=== PATIENT | female | born 2000 | race Caucasian/White ===

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

== ENCOUNTER 2021-10-16 12:57 | Emergency (ER) | payer OTHER ==
[2021-10-16 13:10] VITALS: BP 118/85; PULSE 96; TEMP 98.2; BMI 25.6
[2021-10-16] MEDS ORDERED: ALBUTEROL SO4 2.5/IPRATROPIUM 0.5 INH SOL 3 ML VIAL.NEB. NEB ONE ×2 (14:43→14:44)
[2021-10-17 20:07] LABS: SARS-CoV-2 NAA Not Detected (Not Detected)
== END 2021-10-16 16:30 | disposition home or self-care (01) ==
LOC: JER 12:57 → JERFT 12:57
PROC: 3E0F7GC Introduction of Other Therapeutic Substance into Respiratory Tract, Via Natural or Artificial Opening (ICD-10-PCS; principal; 2021-10-16)
DX: J06.9 Acute upper respiratory infection, unspecified (principal); B34.9 Viral infection, unspecified
CPT/HCPCS: 71046-TC-FY; 87804; 99284-25; C9803-CS; U0003; U0005

== ENCOUNTER 2022-06-17 07:47 | Emergency (ER) | payer OTHER ==
[2022-06-17] MEDS ORDERED: SODIUM CHLORIDE 1,000 ML IV STA (08:25)
[2022-06-17] MEDS ORDERED: ONDANSETRON 4 MG/2 ML VIAL IVPUSH ONE (08:25)
[2022-06-17] MEDS ORDERED: FAMOTIDINE 20 MG/50 ML IVPB 20 MG/50 ML MG IVPB ONE ×2 (08:30→08:56)
[2022-06-17] MEDS ORDERED: ONDANSETRON 4 MG/2 ML VIAL ONE (08:56)
[2022-06-17 09:05] LABS: BASO % 0.5 % (0-2.0); EOS % 0.1 % (0-4.5); HEMATOCRIT 40.7 % (32.4-45.2); HEMOGLOBIN 13.4 GM/dL (10.7-15.3); LYMPH % 13.2 % (8-40); MCH 28.8 pg (25.7-33.7); MEAN CELL VOLUME 87.4 fl (80-96); MEAN PLT VOLUME 9.3 fl (7.5-11.1); NEUT % 83.2 % (42.8-82.8); PLATELET COUNT 365 10^3/uL (134-434); RBC 4.66 M/mm3 (3.60-5.2); RDW 13.6 % (11.6-15.6); WHITE BLOOD COUNT 12.6 K/mm3 (4.0-10.0)
[2022-06-17] MEDS ORDERED: LACTATED RINGERS SOLUTION 1000 ML INFUS.BAG IV ONE (09:21)
[2022-06-17 09:31] LABS: ALBUMIN 4.1 g/dl (3.4-5.0); CALCIUM 9.7 mg/dL (8.5-10.1)
[2022-06-17 09:32] LABS: BLOOD UREA NITROGEN 13.1 mg/dL (7-18)
[2022-06-17 09:34] LABS: CREATININE 0.9 mg/dL (0.55-1.3)
[2022-06-17 09:36] LABS: BILIRUBIN,TOTAL 0.3 mg/dL (0.2-1); TOT PROT 7.8 g/dl (6.4-8.2)
[2022-06-17] MEDS ORDERED: METOCLOPRAMIDE HCL INJECTION 10 MG/2 ML VIAL IVPUSH ONE (09:50)
[2022-06-17] MEDS ORDERED: METOCLOPRAMIDE HCL INJECTION 10 MG/2 ML VIAL ONE (09:52)
[2022-06-17 10:57] VITALS: BP 111/71; PULSE 74; RESP 18
== END 2022-06-17 11:09 | disposition home or self-care (01) ==
LOC: JER 07:47
PROC: 3E033GC Introduction of Other Therapeutic Substance into Peripheral Vein, Percutaneous Approach (ICD-10-PCS; principal; 2022-06-17)
DX: F10.929 Alcohol use, unspecified with intoxication, unspecified (principal); R11.2 Nausea with vomiting, unspecified; E86.0 Dehydration
CPT/HCPCS: 36415; 80053; 83690; 83735; 84703; 85025; 93005; 93010; 99284-25

== ENCOUNTER 2022-12-17 13:46 | Emergency (ER) | payer OTHER ==
[2022-12-17 13:56] VITALS: BP 106/73; PULSE 77; RESP 18; TEMP 98.3; BMI 24.7
[2022-12-17] MEDS ORDERED: KETOROLAC TROMETHAMINE 30 MG/1 ML VIAL IM ONE (15:36)
[2022-12-17] MEDS ORDERED: KETOROLAC TROMETHAMINE 30 MG/1 ML VIAL ONE (15:57)
== END 2022-12-17 16:52 | disposition home or self-care (01) ==
LOC: JER 13:46
PROC: 3E0233Z Introduction of Anti-inflammatory into Muscle, Percutaneous Approach (ICD-10-PCS; principal; 2022-12-17)
DX: R10.30 Lower abdominal pain, unspecified (principal)
CPT/HCPCS: 76830-TC; 99284-25